=== PATIENT | female | born 1955 | race Caucasian/White ===

== ENCOUNTER → 2016-12-06 | Outpatient (CLI) | payer MEDICARE ==
[~2016-12-06] MED LIST: BREO ELLIPTA 21 EACH INH; CYMBALTA30 MG PO; DELTASONE20 MG PO; DESYREL100 MG PO; FLONASE 50 MCG/16 GM NOSE; LIPITOR40 MG PO; NEURONTIN300 MG PO; PRINIVIL (ZESTRI5 MG PO; PROVENTIL OR V6.7 GM INH; SPIRIVA HANDIHA1 KIT INH; SPIRIVA18 MCG INH; TYLENOL EXTRA500 MG PO; VITAMIN C1000 MG PO; XANAX0.5 MG PO; ZITHROMAX500 MG PO
== END ==
LOC: LGSMG 09:41
DX: N18.3 Chronic kidney disease, stage 3 (moderate) (principal); E87.1 Hypo-osmolality and hyponatremia